=== PATIENT | male | born 1965 | race Caucasian/White ===

== ENCOUNTER 2017-01-07 09:29 | Outpatient (CLI) | payer OTHER ==
[2017-01-07 10:28] LABS: eGFR (African) > 60; eGFR (Non-African) > 60
== END 2017-01-07 09:30 ==
LOC: LAB 09:29
PROVIDERS: ATTEND Family Medicine
DX: E11.9 Type 2 diabetes mellitus without complications (principal)
CPT/HCPCS: 36415; 80053; 80061; 83036

== ENCOUNTER 2017-08-15 09:23 | Outpatient (CLI) | payer OTHER ==
[2017-08-15 10:04] LABS: eGFR (African) > 60; eGFR (Non-African) > 60
== END 2017-08-15 09:24 ==
LOC: LAB 09:23
PROVIDERS: ATTEND Family Medicine
DX: E11.9 Type 2 diabetes mellitus without complications (principal)
CPT/HCPCS: 36415; 80053; 80061; 82043; 83036

== ENCOUNTER 2018-02-20 09:03 | Outpatient (CLI) | payer OTHER ==
[2018-02-20 09:44] LABS: eGFR (African) > 60; eGFR (Non-African) > 60
== END 2018-02-20 09:05 ==
LOC: LAB 09:03
PROVIDERS: ATTEND Family Medicine
DX: E11.9 Type 2 diabetes mellitus without complications (principal)
CPT/HCPCS: 36415; 80053; 82043; 83036

== ENCOUNTER 2018-08-28 09:16 | Outpatient (CLI) | payer OTHER ==
[2018-08-28 10:16] LABS: eGFR (Non-African) > 60
== END 2018-08-28 19:21 | disposition home or self-care (01) ==
LOC: LAB 09:16
PROVIDERS: ATTEND Family Medicine
DX: E11.9 Type 2 diabetes mellitus without complications (principal); I10 Essential (primary) hypertension
CPT/HCPCS: 36415; 80053

== ENCOUNTER 2019-08-02 09:08 | Outpatient (CLI) | payer OTHER ==
[2019-08-02 10:10] LABS: A1C 6.4 % (<5.7)
[2019-08-02 10:11] LABS: HDL 32 mg/dL (>40); eGFR (Non-African) > 60
== END 2019-08-02 09:13 ==
LOC: LAB 09:08
PROVIDERS: ATTEND Family Medicine
DX: E11.9 Type 2 diabetes mellitus without complications (principal); I10 Essential (primary) hypertension; E78.5 Hyperlipidemia, unspecified
CPT/HCPCS: 36415; 80053; 80061; 83036